=== PATIENT | female | born 1995 | race African-American/Black ===

== ENCOUNTER 2021-07-05 17:05 | Inpatient (IN) | payer OTHER ==
[2021-07-05 18:26] VITALS: BMI 24.7
[2021-07-05] MEDS ORDERED: DEXTROSE 5%-LACTATED RINGERS 1,000 ML IV SCH (19:00)
[2021-07-05] MEDS: MISOPROSTOL 25 MCG TABLET (COMPOUNDED BY PHARMACY) PV SCH (19:40)
[2021-07-05] MEDS ORDERED: MISOPROSTOL 25 MCG TABLET (COMPOUNDED BY PHARMACY) PV SCH (22:00)
[2021-07-06] MEDS ORDERED: BUTORPHANOL TARTRATE 2 MG/ML VIAL ONE ×2 (01:05→04:41)
[2021-07-06] MEDS ORDERED: PROMETHAZINE HCL 25 MG/1 ML VIAL ONE ×2 (01:06→04:41)
[2021-07-06] MEDS: MISOPROSTOL 25 MCG TABLET (COMPOUNDED BY PHARMACY) PV SCH (01:15)
[2021-07-06] MEDS ORDERED: PROMETHAZINE HCL 25 MG/1 ML VIAL IVPB ONE ×2 (01:27→04:44)
[2021-07-06] MEDS ORDERED: BUTORPHANOL TARTRATE 1 MG/ML VIAL IVPB ONE ×2 (01:27→04:42)
[2021-07-06] MEDS: DEXTROSE 5%-LACTATED RINGERS 1,000 ML IV SCH ×2 (01:41→01:45)
[2021-07-06] MEDS ORDERED: OXYTOCIN 20 UNITS in 0.9% NS 20 UNIT/1,000 ML INFUS.BAG IV ONE ×2 (04:55→05:58)
[2021-07-06] MEDS ORDERED: LIDOCAINE HCL 1% PRESERVATIVE FREE - 30ML VIAL ONE (04:55)
[2021-07-06] MEDS ORDERED: ACETAMINOPHEN 325 MG TABLET (FP) PO PRN (08:05)
[2021-07-06] MEDS ORDERED: BENZOCAINE 28 GM HEMORRHOIDAL OINTMENT TP PRN (08:05)
[2021-07-06] MEDS ORDERED: WITCH HAZEL 50% (TUCKS) 40 PAD/JAR PAD TP PRN (08:05)
[2021-07-06] MEDS ORDERED: BENZOCAINE 20% 57 GM BOTTLE TP PRN (08:05)
[2021-07-06 08:15] LABS: CORD BASE EXCESS -6.6 mmol/L (0-2); CORD HCO3 21.3 mmHg (20-29); CORD PCO2 51.5 mmHg (30-78); CORD pH 7.234 (7.14-7.44)
[2021-07-06] MEDS ORDERED: OXYTOCIN 20 UNITS in 0.9% NS 20 UNIT/1,000 ML INFUS.BAG IV SCH (08:15)
[2021-07-06] MEDS: IBUPROFEN 600 MG TABLET (FP) PO PRN ×4 (09:03→21:47)
[2021-07-06] MEDS: PRENATAL VITAMINS W/ FOLIC ACID TABLET (FP) PO SCH (11:28)
[2021-07-06] MEDS: FOLIC ACID 1 MG TABLET (FP) PO SCH (12:33)
[2021-07-07] MEDS: IBUPROFEN 600 MG TABLET (FP) PO PRN ×3 (04:37→17:11)
[2021-07-07 08:31] LABS: BASO % 0.2 % (0-2.0); EOS % 0.7 % (0-4.5); HEMATOCRIT 29.6 % (32.4-45.2); HEMOGLOBIN 9.8 GM/dL (10.7-15.3); LYMPH % 20.7 % (8-40); MCH 25.5 pg (25.7-33.7); MCHC 33.3 g/dl (32.0-36.0); MEAN CELL VOLUME 76.6 fl (80-96); MEAN PLT VOLUME 7.3 fl (7.5-11.1); MONO % 6.8 % (3.8-10.2); NEUT % 71.6 % (42.8-82.8); PLATELET COUNT 247 10^3/uL (134-434); RBC 3.86 M/mm3 (3.60-5.2); RDW 14.6 % (11.6-15.6); WHITE BLOOD COUNT 14.4 K/mm3 (4.0-10.0)
[2021-07-07] MEDS: PRENATAL VITAMINS W/ FOLIC ACID TABLET (FP) PO SCH (10:11)
[2021-07-07] MEDS: FOLIC ACID 1 MG TABLET (FP) PO SCH (10:11)
[2021-07-07 17:25] LABS: CALCIUM 8.9 mg/dL (8.5-10.1)
[2021-07-07 17:26] LABS: BLOOD UREA NITROGEN 7.6 mg/dL (7-18)
[2021-07-07 17:29] LABS: CREATININE 0.7 mg/dL (0.55-1.3)
[2021-07-07 21:20] VITALS: TEMP 98.2
[2021-07-07] MEDS ORDERED: SENNOSIDES/DOCUSATE COMBO (SENNA PLUS) TABLET (UD) PO PRN (22:00)
[2021-07-08] MEDS: IBUPROFEN 600 MG TABLET (FP) PO PRN ×2 (08:20→12:37)
[2021-07-08 09:54] VITALS: BP 122/80; PULSE 90
[2021-07-08] MEDS: PRENATAL VITAMINS W/ FOLIC ACID TABLET (FP) PO SCH (10:55)
[2021-07-08] MEDS: FOLIC ACID 1 MG TABLET (FP) PO SCH (10:55)
== END 2021-07-08 15:20 | disposition home or self-care (01) | DRG 807 ==
LOC: JLDR 17:05 → J3W 07-06 11:00
PROVIDERS: ADMIT Obstetrics & Gynecology Maternal & Fetal Medicine; ATTEND Obstetrics & Gynecology Maternal & Fetal Medicine
PROC: 10E0XZZ Delivery of Products of Conception, External Approach (ICD-10-PCS; principal; 2021-07-06)
DX: O80 Encounter for full-term uncomplicated delivery (principal); Z3A.39 39 weeks gestation of pregnancy; Z37.0 Single live birth
CPT/HCPCS: 36415; 36600; 59409; 80048; 82803; 85025; 85730; 86780; 86850; 86900; 86901; 88307-TC